=== PATIENT | female | born 1965 | race Caucasian/White ===

== ENCOUNTER 2016-12-27 19:23 | Emergency (ER) | payer BC ==
[2016-12-27] MEDS ORDERED: Ketorolac 60 MG/2 ML SDV IM ONE (19:38)
--- NOTE | 2016-12-27 19:44 | EDM.PDOC ---
ED HPI Trauma - General Chief Complaint: Lower Extremity Injury/Pain Stated Complaint: LT KNEE INJURY Time Seen by Provider: 12/27/16 19:35 Source: Reports: Patient, Family History Limitations: Reports: No limitations - History of Present Illness INITIAL COMMENTS - FREE TEXT/NARRATIVE: Patient is a 51 year old woman who fell onto her left knee onto some pavers at her home. She has a lot of pain and some swelling in her knee and it hurts to walk on it. She and her are very concerned that she may have severely hurt the knee and that is why he brought her into the ED tonight. Symptom Onset Date: 12/27/16 Symptom Onset Time: 19:00 Occurred When: just prior to arrival Occurred Where: home Method of Injury: fall (onto pavers at home) Severity: severe (cannot walk on it) Pain/Injury Location: Reports: lower extremity, left Consciousness: Reports: no loss of consciousness Associated Symptoms: Reports: denies other symptoms Allergies/ADRs: Allergies pollen extracts Allergy (Verified 12/27/16 20:14) Other Nutrasweet Allergy (Uncoded 12/27/16 20:14) Other Home Medications: Ambulatory Orders Venlafaxine HCl [Venlafaxine ER] 150 mg PO DAILY 12/27/16 [Confirmed 12/27/16] Review of Systems - Review of Systems Review Of Systems: ROS reveals no pertinent complaints other than HPI. Trauma Exam - Physical Exam Exam: See Below Exam Limited By: No limitations General Appearance: Reports: alert, WD/WN, no apparent distress Head: Reports: atraumatic, normocephalic Eyes: bilateral eye: EOMI, normal inspection, PERRL Ears: Reports: normal external exam, normal canal, hearing grossly normal, normal TMs Nose: Reports: normal inspection, normal mucousa, no blood Throat/Mouth: Reports: Normal inspection, Normal lips, Normal teeth, Normal gums , Normal oropharynx, Normal voice, No airway compromise Neck: Reports: non-tender, full range of motion, normal alignment, normal inspection Respiratory Exam: Reports: no respiratory distress, lungs clear, normal breath sounds Cardiovascular: Reports: normal peripheral pulses, regular rate, rhythm, no edema, no gallop, no JVD, no murmur, no rub GI/Abdominal: Reports: normal bowel sounds, soft, non tender, no organomegaly, no distention, no abnormal bruit, no mass Extremities: Reports: joint effusion (3 plus in prepatellar bursa area of left knee), pain with movement (left knee), tenderness (left knee), other (too tender to test for ligamentous or meniscal injury.) Neurologic: Reports: 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 Last Recorded V/S: Last Vital Signs Temp 37.0 C 12/27/16 20:31 Pulse 84 12/27/16 20:31 Resp 18 12/27/16 20:31 BP 148/72 H 12/27/16 20:31 Pulse Ox 96 12/27/16 20:31 - Orders/Labs/Meds Orders: Active Orders 24 hr Category Date Time Status Knee 3V Lt [CR] Stat Exams 12/27/16 19:32 Taken Labs: Laboratory Tests 12/27/16 Range/Units 19:40 Ethyl Alcohol 0.28 H* (<0.01) % Meds: Medications Discontinued Medications Generic Name Dose Route Start Last Admin Trade Name Opal PRN Reason Stop Dose Admin Ketorolac Tromethamine 60 mg 12/27/16 19:38 12/27/16 20:08 Toradol IM 12/27/16 19:39 60 mg ONETIME ONE Administration - Radiology Interpretation Free Text/Narrative:: Preliminary knee x-ray was negative for fracture. Departure - Departure Time of Disposition: 21:14 Disposition: Home, Self-Care 01 Clinical Impression: Contusion of knee Instructions: Knee Sprain, [id number] Referrals: Larry Frye MD [Primary Care Provider] - Forms: ED Department Discharge Additional Instructions: 1. Pain relief with Ibuprofen 800 mg every 6 hours orally and Tylenol 500 mg orally every 4 hours 2. Rest 3. Ice 15 minutes 4 times daily 4. Alban wrap 5. Elevation 6. See Dr. Frye in next 1-2 days if not better. - My Orders Last 24 Hours: My Active Orders 12/27/16 19:32 Knee 3V Lt [CR] Stat - Assessment/Plan Last 24 Hours: My Active Orders 12/27/16 19:32 Knee 3V Lt [CR] Stat
[2016-12-27 20:33] VITALS: BP 148/72
--- NOTE | 2016-12-28 11:02 | CR ---
INDICATION: Injured left knee by falling on pavers, bruising over patella. LEFT KNEE: Three views of the left knee revealed no evidence of an acute fracture or dislocation. Minimal prominence at the suprapatellar bursa raises question of a minimal knee joint effusion. Soft tissue swelling is noted overlying the patella, compatible with injury to the soft tissues in that area. 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 IMPRESSION: 1. No acute fracture or dislocation. 2. Possible minimal knee joint effusion. 3. Soft tissue swelling overlying the patella. 4. 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 MTDD
== END 2016-12-27 21:05 | disposition home or self-care (01) ==
LOC: FB.ED 19:23
DX: S80.02XA Contusion of left knee, initial encounter (principal); Z91.09 Other allergy status, other than to drugs and biological substances; Y04.2XXA Assault by strike against or bumped into by another person, initial encounter; Y92.009 Unspecified place in unspecified non-institutional (private) residence as the place of occurrence of the external cause
CPT/HCPCS: 36415; 73562; 96372; 99283; G0480; J1885